=== PATIENT | male | born 1985 | race Caucasian/White ===

== ENCOUNTER 2020-12-03 12:30 | Emergency (ER) | payer SELFPAY ==
[~2020-12-03] VITALS: Ht 172.7 cm; Wt 97.5 kg
[2020-12-03 12:35] VITALS: BP 129/76
--- NOTE | 2020-12-03 12:35 | NUR ---
pt BIB [facility] for evaluation for ETOH use and agitation/combative behavior. per report, pt family called 911 for questionable seizure type activity, but [facility] found pt "ronning on the ground on a dirt road" no seizure activity noted [employer]. 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 answering questions and following commands. pt reports that he was drinking ETOH today and "was being stupid" pt has an abrasion to the L side of his forehead, no bleeding. ambualtory and KAUR without diffiuclty. no loss of bowel or bladder control, no oral trauma. no family at bedside. EKG at bedside
--- NOTE | 2020-12-03 12:50 | NUR ---
pt reporta that he is "fine" and doesn't want to stay for evaluation. pt A&O x4. pt is aware that he is in the hospital. pt knows the date and is able to describe the events leading to him being [place] to the hospital
--- NOTE | 2020-12-03 12:55 | NUR ---
Dr. Tobias at bedside for evaluation. pt states again that he does not want to stay for evaluation. pt is ambulatory without assist. pt reports that he has his isabel phone in his pocket and can call a family member for a ride home
--- NOTE | 2020-12-03 13:00 | NUR ---
AMA form completed. pt has removed his own IV. pt declines taking a copy of AMA form.
== END 2020-12-03 13:26 | disposition left against medical advice (07) ==
LOC: ED 13:20
DX: F10.220 Alcohol dependence with intoxication, uncomplicated (principal); Y90.9 Presence of alcohol in blood, level not specified
CPT/HCPCS: 93005; 99283